=== PATIENT | female | born 1990 | race African-American/Black ===

== ENCOUNTER 2017-05-14 17:16 | Emergency (ER) | payer OTHER ==
[~2017-05-14] VITALS: Ht 170.2 cm; Wt 82.0 kg
[2017-05-14 17:39] VITALS: BP 112/76
== END 2017-05-14 22:00 | disposition left against medical advice (07) ==
LOC: ER 18:15
DX: R10.9 Unspecified abdominal pain (principal); Z53.21 Procedure and treatment not carried out due to patient leaving prior to being seen by health care provider

== ENCOUNTER 2017-05-15 07:22 | Emergency (ER) | payer OTHER ==
[~2017-05-15] VITALS: Ht 170.2 cm; Wt 77.0 kg
[2017-05-15] MEDS ORDERED: ONDANSETRON HCL 4MG/2ML VIAL IV ONE (10:30)
[2017-05-15] MEDS ORDERED: SODIUM CHLORIDE 0.9% 1,000 ML IV ONE ×2 (10:30→13:30)
[2017-05-15 10:53] LABS: BASOPHILS % 0.2 % (0.0-2.0); HEMATOCRIT. 39.1 % (36.0-48.0); LYMPHOCYTES % 10.1 % (20.0-50.0); MEAN CORPUSCULAR HEMOGLOBIN 23.9 pg (28.0-32.0); MEAN CORPUSCULAR VOLUME 71.9 fL (81.0-99.0); MEAN PLATELET VOLUME 10.1 fl (7.4-10.4); MONOCYTES % 9.3 % (2.0-8.0); NEUTROPHILS % 80.4 % (40.0-76.0); PLATELET 185 x1000/uL (130-400); RED BLOOD CELL COUNT 5.44 mill/uL (4.2-5.4); RED CELL DISTRIBUTION WIDTH 15.1 % (11.6-14.6)
[2017-05-15 11:05] LABS: CHLORIDE 102 mEq/L (98-107)
[2017-05-15 12:12] LABS: CLARITY URINE CLOUDY (CLEAR); COLOR URINE DARK YELLOW (YELLOW); KETONES URINE TRACE (NEGATIVE); LEUKOCYTE ESTERASE URINE 2+ (NEGATIVE); NITRITE URINE POSITIVE (NEGATIVE); OCCULT BLOOD URINE 3+ (NEGATIVE); PH URINE 5.5 (4.5-8.0); PROTEIN URINE 3+ (NEGATIVE); SPECIFIC GRAVITY URINE 1.033 (1.005-1.030)
[2017-05-15] MEDS ORDERED: KETOROLAC 30MG/ML VIAL IV ONE (13:15)
[2017-05-15] MEDS ORDERED: CEFTRIAXONE 2 G PREMIX 50 ML IV ONE (13:30)
[2017-05-15 15:55] VITALS: BP 108/70
== END 2017-05-15 16:27 | disposition home or self-care (01) ==
LOC: ER 07:38
DX: N12 Tubulo-interstitial nephritis, not specified as acute or chronic (principal)
CPT/HCPCS: 36415; 80053; 81001; 81025; 83690; 85025; 87040; 87077; 87086; 87186; 96374; 96375; 99284; J0696; J1885; J7030; Z7610